=== PATIENT | male | born 1955 | race Asian ===

== ENCOUNTER 2016-08-06 11:54 | Emergency (ER) | payer OTHER ==
[~2016-08-06] VITALS: Ht 167.6 cm; Wt 65.9 kg
[2016-08-06] MEDS ORDERED: AMLO-511 PO (12:24)
[2016-08-06] MEDS ORDERED: IBUPROFEN 600 MG TABLET PO ONE (14:00)
[2016-08-06] MEDS ORDERED: PERTUSS(ACELL),DIPH,TET VAC/PF 0.5 ML VIAL IM ONE (14:30)
[2016-08-06 15:14] VITALS: BP 148/87
== END 2016-08-06 15:17 | disposition home or self-care (01) ==
LOC: EMS 11:56
DX: S60.042A Contusion of left ring finger without damage to nail, initial encounter (principal); I10 Essential (primary) hypertension; E78.00 Pure hypercholesterolemia, unspecified; Z87.891 Personal history of nicotine dependence; W01.0XXA Fall on same level from slipping, tripping and stumbling without subsequent striking against object, initial encounter; Y93.89 Activity, other specified; Y92.89 Other specified places as the place of occurrence of the external cause; Y99.8 Other external cause status
CPT/HCPCS: 90471; 90715; 99284

== ENCOUNTER → 2019-12-26 | Outpatient (CLI) | payer MEDICARE ==
[~2019-12-26] MED LIST: AMLO-257 PO
== END | disposition home or self-care (01) ==
LOC: RADPV 10:53
PROVIDERS: ATTEND Family Medicine
DX: J90 Pleural effusion, not elsewhere classified (principal); Z87.891 Personal history of nicotine dependence
CPT/HCPCS: 71046; 71046-TC